=== PATIENT | male | born 1995 | race Caucasian/White ===

== ENCOUNTER 2017-02-12 09:08 | Emergency (ER) | payer OTHER ==
--- NOTE | 2017-02-12 09:23 | PDOC ---
Foot / Ankle Injury - General Chief Complaint: Lower Extremity Problem/Injury Stated Complaint: POSSIBLE BROKEN RIGHT FOOT Date Seen by Provider: 02/12/17 Time Seen by Provider: 09:17 Source: POSITIVE: Patient Exam Limitations: POSITIVE: No limitations Nurse's Notes Reviewed & Considered: Yes - History of Present Illness Initial Comments: The patient is a 21-year-old male who presents to the emergency department with right foot pain. He states that he was mowing the lawn yesterday when he stepped in a hole and twisted his right foot. He states that he felt a pop at that time in the mid foot. Since then he has been unable to bear any weight on the right foot secondary to pain. He denies any other associated injuries or complaints. He states that he did have a fracture in his right foot for years ago from playing basketball. Have you received a tetanus shot in the past 10 years?: Unknown - Patient Allergies Allergies/Adverse Reactions: Allergies Allergy/AdvReac Type Severity Reaction Status Date / Time Penicillins Allergy HIVES Verified 02/12/17 09:15 - Patient Home Medications Home Medications: Home Medications Ibuprofen 400 mg PO Q6H PRN 02/12/17 Past Medical History Past Medical History Reviewed: Other (please comment) (Patient states that he is otherwise healthy) ROS - Limitations ROS Limitations: No Limitations (Review of systems otherwise noncontributory) Foot / Ankle Exam - General Appearance General Appearance: POSITIVE: Alert, Cooperative, No Acute Distress - Extremities Foot: POSITIVE: Other (examination the right foot does reveal some swelling to the dorsum of the midfoot, he does have associated tenderness in this region, he also has some tenderness over the lateral aspect of the midfoot with some mild swelling, has a good dorsalis pedis pulse in the right foot, normal cap refill in his toes, he reports diminished sensation in his toes) Ankle: POSITIVE: Normal Inspection, Non-Tender Gait: POSITIVE: Limited by Pain Vascular: POSITIVE: No Vascular Compromise Foot / Ankle Progress - Results Reviewed by me Discussed with Radiologist: Yes Radiology Findings: X-ray of the right foot was reviewed in person with the radiologist. There was no visible fracture or dislocation identified. - Patient's Progress MDM / ED Course: X-ray findings were discussed with the patient. There is no obvious fracture per radiologist. Recommend Sharan wrap for comfort. Continue to use crutches to assist with ambulation. He was advised that he can bear weight as tolerated. Recommend ice and elevation of the right foot. He is also advised to take ibuprofen 600 mg every 6 hours as needed for pain. Return to the emergency room if increased pain, worsening or change in symptoms. He is advised follow- up with primary care or orthopedic surgery if continued pain in 5-7 days. - Consult Counseled: POSITIVE: Patient, RE: Radiology Results, RE: DX, RE: Need for F/U Patient Care Time - Estimated PCT Patient Care Time (In Minutes): 15 Vital Signs - Recent Vital Signs Vital Signs: Vital Signs (Last 8 hours) Temp Pulse Resp BP Pulse Ox 02/12/17 09:08 97.6 F 67 14 126/78 97 - VS Reviewed Vital Signs Reviewed: Yes Discharge Clinical Impression: Foot sprain Discharge Disposition: Discharged to Home Condition: Stable Patient Instructions Given at Discharge: Foot Sprain (ED) Additional Instructions: The x-ray of the foot did not reveal any fracture. This most likely represents a sprain of the foot. Recommend Sharan wrap for comfort. Crutches to assist with walking. You can bear weight on your right foot as symptoms improve however let pain be your guide in putting weight down. Ice and elevate the right foot to help reduce pain and swelling. Recommend ibuprofen 600 mg every 6 hours as needed for pain. Return to the emergency room if increased pain, worsening or change in symptoms. Recommend follow-up if continued pain in 5-7 days. Follow Up With: NONE,NONE [Primary Care Provider] -
[2017-02-12 09:34] VITALS: RESP 14; TEMP 97.6
--- NOTE | 2017-02-12 10:00 | DI ---
History: Injury to right foot Comparison: None Findings: No fracture No malalignment No degenerative changes No destructive/erosive lesions No soft tissue foreign bodies Incidental is made of a smoothly marginated linear lucency through the proximal base of the third met atarsal. This does not have the appearance of an acute injury and should represent an artifactual fin ding. Impression Unremarkable plain film study of the foot
== END 2017-02-12 10:07 | disposition home or self-care (01) ==
LOC: ER 09:08
DX: S93.601A Unspecified sprain of right foot, initial encounter (principal); W18.42XA Slipping, tripping and stumbling without falling due to stepping into hole or opening, initial encounter
CPT/HCPCS: 73630; 99282